=== PATIENT | male | born 1990 | race Caucasian/White ===

== ENCOUNTER 2020-04-02 22:19 | Emergency (ER) | payer OTHER ==
[~2020-04-02] VITALS: Ht 177.8 cm; Wt 83.9 kg
[2020-04-02] MEDS ORDERED: AUGMENTIN 875-1 EACH PO (23:30)
[2020-04-02 23:52] VITALS: BP 132/64
== END 2020-04-02 23:53 | disposition home or self-care (01) ==
LOC: M.ERS 22:19
DX: S80.212A Abrasion, left knee, initial encounter (principal); W54.0XXA Bitten by dog, initial encounter; Y93.89 Activity, other specified; Y92.89 Other specified places as the place of occurrence of the external cause; Y99.0 Civilian activity done for income or pay